=== PATIENT | male | born 1970 | race Caucasian/White ===

== ENCOUNTER 2016-03-21 09:03 | Emergency (ER) | payer MEDICARE ==
[~2016-03-21] VITALS: Ht 180.3 cm; Wt 63.5 kg
[~2016-03-21 09:03] MED LIST: ALPR1TAB2 PO; CLIN300C86 PO; CLON2TAB2 PO; GABA600T2 PO; HYDR-971 PO; OXYC30TA PO; OXYC30TA21 PO
--- NOTE | 2016-03-21 09:32 | PHYS DOC ---
Past Medical History Past Medical History: Anxiety, COPD, Other Additional Past Medical Histor: R lung mass, back problems, CHRONIC PAIN, Past Surgical History: Tonsillectomy, Other Additional Past Surgical Histo: facial reconstruction after injury, right partial pneumonectomy Additional Information: 1 PPD Alcohol Use: Rarely Drug Use: Marijuana Adult General Chief Complaint Chief Complaint: LOWER EXTREMITY SWELLING [facility] HPI Patient is a 45 year old male presents emergency room with a complaint of bilateral ankle and foot swelling that began overnight. He states this happened a couple of years ago in which she was seen at [facility] and was told that he had "blood poisoning". Patient denies any injuries to either foot or ankle. He denies any fevers or chills. Patient does have problems with chronic pain as well as anxiety and which she is reliant upon narcotics and benzodiazepines to be marginally functional. Patient denies any history of liver disease, renal disease, protein deficiencies or electrolyte abnormalities. He denies any history of cardiac disease, specifically congestive heart failure. Patient states that he took 30 mg of oxycodone this morning prior to coming into the emergency department. Review of Systems Review of Systems Constitutional: Denies fever or chills [] Eyes: Denies change in visual acuity, redness, or eye pain [] HENT: Denies nasal congestion or sore throat [] Respiratory: Denies cough or shortness of breath [] Cardiovascular: No additional information not addressed in HPI [] GI: Denies abdominal pain, nausea, vomiting, bloody stools or diarrhea [] : Denies dysuria or hematuria [] Musculoskeletal: Denies back pain or joint pain [] Integument: Denies rash or skin lesions [] Neurologic: Denies headache, focal weakness or sensory changes [] Endocrine: Denies polyuria or polydipsia [] Current Medications Current Medications Current Medications Medications (Trade) Dose Ordered Sig/Gerardo Start Time Stop Time Status Last Admin Dose Admin Lorazepam (Ativan) 1 mg 1X ONCE 03/21/16 10:45 03/21/16 10:46 DC 03/21/16 10:45 1 MG Allergies Allergies Allergies Coded Allergies Type Severity Reaction Last Updated Verified codeine Allergy Intermediate 06/25/13 Yes morphine Allergy Intermediate 06/25/13 Yes Physical Exam Physical Exam Constitutional: Well developed, well nourished, no acute distress, non-toxic appearance. Patient is somnolent in appearance. Poor eye contact as he prefers to look off to the left. He will look at me when I ask him a very direct, pointed question. HENT: Normocephalic, atraumatic, bilateral external ears normal, oropharynx moist, no oral exudates, nose normal. [] Eyes: PERRLA, EOMI, conjunctiva normal, no discharge. [] Neck: Normal range of motion, no tenderness, supple, no stridor. [] Cardiovascular:Heart rate regular rhythm, no murmur. PMI is not displaced. There is no JVD. Lungs & Thorax: Bilateral breath sounds clear to auscultation. Abdomen: Bowel sounds normal, soft, no tenderness, no masses, no pulsatile masses. [] Skin: Warm, dry, no erythema, no rash. [] Back: No tenderness, no CVA tenderness. [] Extremities: There is no pretibial edema. There is mild swelling about both ankles and midfoot. There is no pitting of the skin. Skin is warm and dry. There are no palpable venous cords to the medial aspect of either lower extremity. There is no erythema or warmth to the touch. Patient has strong bilateral dorsalis pedis and posterior tibialis pulses. Neurologic: Alert and oriented X 3, normal motor function, normal sensory function, no focal deficits noted. [] Psychologic: Affect normal, judgement normal, mood normal. [] Current Patient Data Vital Signs Vital Signs Date Time Temp Pulse Resp B/P Pulse Ox O2 Delivery O2 Flow Rate FiO2 03/21/16 10:13 68 117/70 93 Room Air 03/21/16 09:15 97.7 18 97.7 Lab Values Laboratory Tests Test 03/21/16 09:43 03/21/16 10:25 White Blood Count 8.1x10^3/uL (4.0-11.0) Red Blood Count 4.38x10^6/uL (4.30-5.70) Hemoglobin 13.4g/dL (13.0-17.5) Hematocrit 39.5% (39.0-53.0) Mean Corpuscular Volume 90fL (79-100) Mean Corpuscular Hemoglobin 31pg (25-35) Mean Corpuscular Hemoglobin Concent 34g/dL (31-37) Red Cell Distribution Width 13.0% (11.5-14.5) Platelet Count 251x10^3/uL (140-400) Neutrophils (%) (Auto) 71% (31-73) Lymphocytes (%) (Auto) 18% (24-48) L Monocytes (%) (Auto) 7% (0-9) Eosinophils (%) (Auto) 4% (0-3) H Basophils (%) (Auto) 1% (0-3) Neutrophils # (Auto) 5.7x10^3uL (1.8-7.7) Lymphocytes # (Auto) 1.5x10^3/uL (1.0-4.8) Monocytes # (Auto) 0.5x10^3/uL (0.0-1.1) Eosinophils # (Auto) 0.3x10^3/uL (0.0-0.7) Basophils # (Auto) 0.1x10^3/uL (0.0-0.2) Sodium Level 141mmol/L (136-145) Potassium Level 3.8mmol/L (3.5-5.1) Chloride Level 104mmol/L (98-107) Carbon Dioxide Level 30mmol/L (21-32) Anion Gap 7 (6-14) Blood Urea Nitrogen 11mg/dL (8-26) Creatinine 0.9mg/dL (0.7-1.3) Estimated GFR (Cockcroft-Gault) 92.1 BUN/Creatinine Ratio 12 (6-20) Glucose Level 91mg/dL (70-99) Calcium Level 8.6mg/dL (8.5-10.1) Total Bilirubin 0.4mg/dL (0.2-1.0) Aspartate Amino Transferase (AST) 23U/L (15-37) Alanine Aminotransferase (ALT) 31U/L (16-63) Alkaline Phosphatase 79U/L (46-116) YY-Nrb-R-Type Natriuretic Peptide 63pg/mL (0-124) Total Protein 6.3g/dL (6.4-8.2) L Albumin 3.4g/dL (3.4-5.0) Albumin/Globulin Ratio 1.2 (1.0-1.7) Urine Collection Type Void Urine Color Yellow Urine Clarity Clear Urine pH 6.0 Urine Specific [place] 1.020 Urine Protein Negativemg/dL (NEG-TRACE) Urine Glucose (UA) Negativemg/dL (NEG) Urine Ketones (Stick) Negativemg/dL (NEG) Urine Blood Negative (NEG) Urine Nitrite Negative (NEG) Urine Bilirubin Negative (NEG) Urine Urobilinogen Dipstick 0.2mg/dL (0.2 mg/dL) Urine Leukocyte Esterase Small (NEG) Urine RBC 1-2/HPF (0-2) Urine WBC 5-10/HPF (0-4) Urine Squamous Epithelial Cells Occ/LPF Urine Bacteria Few/HPF (0-FEW) Urine Mucus Marked/LPF Urine Opiates Screen Pos (NEG) Urine Methadone Screen Neg (NEG) Urine Barbiturates Neg (NEG) Urine Phencyclidine Screen Neg (NEG) Urine Amphetamine/Methamphetamine Neg (NEG) Urine Benzodiazepines Screen Pos (NEG) Urine Cocaine Screen Neg (NEG) Urine Cannabinoids Screen Neg (NEG) Urine Ethyl Alcohol Neg (NEG) Laboratory Tests 03/21/16 09:43 Laboratory Tests 03/21/16 09:43 EKG EKG [] Radiology/Procedures Radiology/Procedures Bilateral lower extremity venous Doppler showed no evidence of blood clots or vascular abnormalities. Course & Med Decision Making Course & Med Decision Making Pertinent Labs and Imaging studies reviewed. (See chart for details) [] Dragon Disclaimer Dragon Disclaimer This electronic medical record was generated, in whole or in part, using a voice recognition dictation system. Departure Departure Impression: Primary Impression: Peripheral edema Disposition: 01 HOME, SELF-CARE Condition: GOOD Referrals: NO PCP (PCP) Patient Instructions: Peripheral Edema Additional Instructions: 1. The ultrasound of your legs shows no blood clots. There is no evidence of congestive heart failure, kidney or liver abnormalities. There is no evidence of low protein causing her leg swelling. There is no evidence of congestive heart failure. 2. Review the discharge instructions provided for reasons to return to the emergency department. 3. You need to find a primary care doctor to address your medical concerns. A pamphlet is provided to you for assistance with this. DARCY BLANK Mar 21, 2016 09:32
[2016-03-21 09:58] LABS: BASO # 0.1 x10^3/uL (0.0-0.2); BASO % 1 % (0-3); EOS % 4 % (0-3); HEMATOCRIT 39.5 % (39.0-53.0); HEMOGLOBIN 13.4 g/dL (13.0-17.5); LYMPH # 1.5 x10^3/uL (1.0-4.8); LYMPH % 18 % (24-48); MEAN CORPUSCULAR HEMOGLOBIN 31 pg (25-35); MEAN CORPUSCULAR HGB CONC 34 g/dL (31-37); MEAN CORPUSCULAR VOLUME 90 fL (79-100); MONO % 7 % (0-9); NEUT % 71 % (31-73); PLATELET COUNT 251 x10^3/uL (140-400); RED BLOOD COUNT 4.38 x10^6/uL (4.30-5.70); WHITE BLOOD COUNT 8.1 x10^3/uL (4.0-11.0)
[2016-03-21 10:20] LABS: CALCIUM 8.6 mg/dL (8.5-10.1); CREATININE 0.9 mg/dL (0.7-1.3); GFR 92.1; POTASSIUM 3.8 mmol/L (3.5-5.1)
[2016-03-21 10:25] LABS: ALBUMIN 3.4 g/dL (3.4-5.0); ALBUMIN/GLOBULIN RATIO 1.2 (1.0-1.7); TOTAL BILIRUBIN 0.4 mg/dL (0.2-1.0); TOTAL PROTEIN 6.3 g/dL (6.4-8.2)
[2016-03-21] MEDS ORDERED: LORAZEPAM 2 MG/ML VIAL IV ONE (10:45)
[2016-03-21 10:47] LABS: BILIRUBIN,URINE NEGATIVE (NEG); GLUCOSE,URINE NEGATIVE (NEG); NITRITE,URINE NEGATIVE (NEG); PROTEIN,URINE NEGATIVE (NEG-TRACE); UROBILINOGEN,URINE 0.2 mg/dL (0.2 mg/dL)
[2016-03-21 10:49] LABS: BARBITURATES NEG (NEG); BENZODIAZEPINES POS (NEG); CANNABINOIDS NEG (NEG); COCAINE NEG (NEG); ETHANOL, URINE NEG (NEG); METHADONE NEG (NEG); OPIATES POS (NEG); PHENCYCLIDINE NEG (NEG)
--- NOTE | 2016-03-21 10:59 | RAD ---
Right leg venous Doppler study: Clinical indications: Right leg swelling and pain. Findings: Duplex sonography (including foster scale evaluation and color flow and waveform spectral analysis) of the proximal aspect of the greater saphenous vein and proximal aspect of the profunda femoral vein and the entire length of the common femoral and superficial femoral and popliteal veins and the tibioperoneal trunk and the proximal aspect of the posterior tibial veins of the right leg was performed. Normal compressibility, augmentation of color Doppler flow after calf compression, and respiratory variation of Doppler flow is seen. Thus, there are no sonographic findings of deep venous thrombosis within these veins. Impression: There are no sonographic findings of deep venous thrombosis within the veins discussed above of the right lower extremity. Left leg venous Doppler study: Clinical indications: Left leg swelling and pain. Findings: Duplex sonography (including foster scale evaluation and color flow and waveform spectral analysis) of the proximal aspect of the greater saphenous vein and the proximal aspect of the profunda femoral vein and the entire length of the common femoral and superficial femoral and popliteal veins and the tibioperoneal trunk and the proximal aspect of the posterior tibial veins of the left leg was performed. Normal compressibility, augmentation of color Doppler flow after calf compression, and respiratory variation of Doppler flow is seen. Thus, there are no sonographic findings of deep venous thrombosis within these veins. Impression: There are no sonographic findings of deep venous thrombosis within the veins discussed above of the left lower extremity.
[2016-03-21 11:05] LABS: BACTERIA,URINE FEW /HPF (0-FEW); SQUAMOUS EPITHELIAL CELL,UR OCC /LPF
[2016-03-21 11:13] VITALS: BP 115/65
== END 2016-03-21 11:56 | disposition home or self-care (01) ==
LOC: ER 09:03
DX: R60.0 Localized edema (principal); G89.29 Other chronic pain; F41.9 Anxiety disorder, unspecified; J44.9 Chronic obstructive pulmonary disease, unspecified; F12.10 Cannabis abuse, uncomplicated; F17.210 Nicotine dependence, cigarettes, uncomplicated; Z88.5 Allergy status to narcotic agent
CPT/HCPCS: 36415; 80053; 81001; 83880; 85027; 86141; 93970; 96374; 99285; G0481; J2060

== ENCOUNTER 2016-05-17 16:06 | Emergency (ER) | payer MEDICARE ==
[~2016-05-17] VITALS: Ht 180.3 cm; Wt 68.0 kg
--- NOTE | 2016-05-17 16:44 | PHYS DOC ---
Past Medical History Past Medical History: Anxiety, COPD, Other Additional Past Medical Histor: R lung mass, back problems, CHRONIC PAIN, Past Surgical History: Tonsillectomy, Other Additional Past Surgical Histo: facial reconstruction after injury, right partial pneumonectomy Alcohol Use: Rarely Drug Use: Marijuana Adult General Chief Complaint Chief Complaint: SEIZURE HPI HPI Patient is a 46 year old male who presents after seizure-like activity. Patient reports he had gone outside with his grandkids, then the next thing he remembers he was on the ground and there was an ambulance there. He says his niece told him he had a seizure (general shaking). He denies h/o seizure. patient was initially confused after episode, but has returned to baseline. He has c/o headache at this time as well as mild R shoulder discomfort. No numbness or weakness. He reports only rare alcohol usage; he does take xanax and clonazepam but his dose/usage of this has not changed. Review of Systems Review of Systems Constitutional: Denies fever or chills Eyes: Denies change in visual acuity or eye pain HENT: Denies nasal congestion or sore throat; cut to lower lip Respiratory: Denies cough or shortness of breath Cardiovascular: Denies chest pain GI: Denies abdominal pain, nausea, vomiting, bloody stools or diarrhea : Denies dysuria or hematuria Musculoskeletal: R shoulder soreness Integument: Denies rash or skin lesions Neurologic: General throbbing headache, seizure-like activity. Denies focal weakness or sensory changes Current Medications Current Medications Current Medications Medications (Trade) Dose Ordered Sig/Gerardo Start Time Stop Time Status Last Admin Dose Admin Acetaminophen (Tylenol) 1,000 mg 1X ONCE 05/17/16 16:45 05/17/16 16:46 DC 05/17/16 17:20 1,000 MG Alprazolam (Xanax) 1 mg 1X ONCE 05/17/16 20:15 05/17/16 20:16 DC 05/17/16 20:18 1 MG Lorazepam (Ativan) 1 mg 1X ONCE 05/17/16 16:45 05/17/16 16:46 DC 05/17/16 17:21 1 MG Naproxen (Naprosyn) 500 mg 1X ONCE 05/17/16 20:15 05/17/16 20:16 DC 05/17/16 20:17 500 MG Neomycin/ Polymyxin/ Bacitracin (Triple Antibiotic Ointment) 1 pkt 1X ONCE 05/17/16 16:45 05/17/16 16:46 DC 05/17/16 17:20 1 PKT Sodium Chloride (Iv Sodium Chloride 0.9% 1000ml Bag) 1,000 ml @ 1,000 mls/hr 1X ONCE 05/17/16 16:45 05/17/16 17:44 DC 05/17/16 17:18 1,000 MLS/HR Allergies Allergies Allergies Coded Allergies Type Severity Reaction Last Updated Verified codeine Allergy Intermediate 06/25/13 Yes morphine Allergy Intermediate 06/25/13 Yes Physical Exam Physical Exam Constitutional: Well developed, well nourished, no acute distress, non-toxic appearance HENT: Normocephalic, bilateral external ears normal; few mm lac to R parietal region; lower lip with 2mm lac Eyes: PERRL, EOMI, conjunctiva normal, no discharge Neck: Normal range of motion, no stridor. No midline TTP, no stepoff Cardiovascular: Heart rate normal, regular rhythm, no murmur Lungs & Thorax: Bilateral breath sounds clear to auscultation Abdomen: Bowel sounds normal, soft, non-distended, no TTP Skin: Warm, dry, no erythema, no rash Back: No midline tenderness, no stepoff Extremities: Abrasion to R posterior shoulder; mild anterior R shoulder TTP, no bony deformity noted, motor function and sensation to light touch intact, 2+ radial pulse Neurologic: Alert and oriented X 3, GCS 15, CN II-XII grossly intact, strength intact and symmetrical throughout, sensation to light touch intact throughout, no dystaxia noted Psychologic: Affect normal, judgement normal, mood normal Current Patient Data Vital Signs Vital Signs Date Time Temp Pulse Resp B/P Pulse Ox O2 Delivery O2 Flow Rate FiO2 05/17/16 20:25 68 16 134/67 96 Room Air 05/17/16 16:07 97.4 97.4 Lab Values Laboratory Tests Test 05/17/16 16:45 05/17/16 18:35 05/17/16 18:50 White Blood Count 14.2x10^3/uL (4.0-11.0) H Red Blood Count 5.25x10^6/uL (4.30-5.70) Hemoglobin 16.3g/dL (13.0-17.5) Hematocrit 49.3% (39.0-53.0) Mean Corpuscular Volume 94fL (79-100) Mean Corpuscular Hemoglobin 31pg (25-35) Mean Corpuscular Hemoglobin Concent 33g/dL (31-37) Red Cell Distribution Width 14.0% (11.5-14.5) Platelet Count 307x10^3/uL (140-400) Neutrophils (%) (Auto) 88% (31-73) H Lymphocytes (%) (Auto) 8% (24-48) L Monocytes (%) (Auto) 3% (0-9) Eosinophils (%) (Auto) 1% (0-3) Basophils (%) (Auto) 0% (0-3) Neutrophils # (Auto) 12.6x10^3uL (1.8-7.7) H Lymphocytes # (Auto) 1.2x10^3/uL (1.0-4.8) Monocytes # (Auto) 0.4x10^3/uL (0.0-1.1) Eosinophils # (Auto) 0.1x10^3/uL (0.0-0.7) Basophils # (Auto) 0.0x10^3/uL (0.0-0.2) Segmented Neutrophils % 87% (35-66) H Lymphocytes % 12% (24-48) L Monocytes % 1% (0-10) Toxic Granulation Slight Platelet Estimate Adequate (ADEQUATE) Sodium Level 142mmol/L (136-145) Potassium Level 4.8mmol/L (3.5-5.1) Chloride Level 107mmol/L (98-107) Carbon Dioxide Level 24mmol/L (21-32) Anion Gap 11 (6-14) Blood Urea Nitrogen 12mg/dL (8-26) Creatinine 1.5mg/dL (0.7-1.3) H Estimated GFR (Cockcroft-Gault) 50.8 BUN/Creatinine Ratio 8 (6-20) Glucose Level 164mg/dL (70-99) H Lactic Acid Level 4.2mmol/L (0.4-2.0) *H 2.1mmol/L (0.4-2.0) H Calcium Level 9.5mg/dL (8.5-10.1) Magnesium Level 2.6mg/dL (1.8-2.4) H Total Bilirubin 0.3mg/dL (0.2-1.0) Aspartate Amino Transferase (AST) 22U/L (15-37) Alanine Aminotransferase (ALT) 32U/L (16-63) Alkaline Phosphatase 89U/L (46-116) Total Protein 7.9g/dL (6.4-8.2) Albumin 4.1g/dL (3.4-5.0) Albumin/Globulin Ratio 1.1 (1.0-1.7) Urine Collection Type Void Urine Color Yellow Urine Clarity Turbid Urine pH 6.0 Urine Specific [place] 1.025 Urine Protein 100mg/dL (NEG-TRACE) Urine Glucose (UA) Negativemg/dL (NEG) Urine Ketones (Stick) Negativemg/dL (NEG) Urine Blood Small (NEG) Urine Nitrite Negative (NEG) Urine Bilirubin Negative (NEG) Urine Urobilinogen Dipstick 0.2mg/dL (0.2 mg/dL) Urine Leukocyte Esterase Negative (NEG) Urine RBC Occ/HPF (0-2) Urine WBC Occ/HPF (0-4) Urine Squamous Epithelial Cells Occ/LPF Urine Bacteria 0/HPF (0-FEW) Urine Hyaline Casts Moderate/HPF Urine Mucus Marked/LPF Urine Sperm Present/HPF Urine Opiates Screen Pos (NEG) Urine Methadone Screen Neg (NEG) Urine Barbiturates Neg (NEG) Urine Phencyclidine Screen Neg (NEG) Urine Amphetamine/Methamphetamine Neg (NEG) Urine Benzodiazepines Screen Pos (NEG) Urine Cocaine Screen Neg (NEG) Urine Cannabinoids Screen Pos (NEG) Urine Ethyl Alcohol Neg (NEG) Laboratory Tests 05/17/16 16:45 Laboratory Tests 05/17/16 16:45 EKG EKG EKG (my read): sinus rhythm, rate 73, normal axis, intervals wnl, no acute ST/T changes Radiology/Procedures Radiology/Procedures CT head: IMPRESSION No acute intracranial process. Please note that CT can be relatively insensitive to acute ischemic infarction for up to 24 hours after symptom onset. CXR (my read): No acute abnormality X-ray R shoulder (my read) - patient refused more than one view: No acute abnormality Course & Med Decision Making Course & Med Decision Making Pertinent Labs and Imaging studies reviewed. (See chart for details) Patient is 46-year-old male who presents status post apparent seizure. No prior history of same. Will check CT head, chest x-ray, right shoulder x-ray, labs to evaluate. IV fluid bolus, small dose of Ativan ordered. Patient says he is up-to -date on tetanus. No repair needed for abrasions or lacerations. Imaging results as above. Labs notable for leukocytosis, elevated lactic acid, positive urine drug screen. Repeat lactic acid ordered, decreasing appropriately. I spoke with Dr. Brenner; as this is first seizure ok to send patient home and will not start on anti-epileptic drug at this time. I did discuss seizure precautions with patient in depth. We will have him follow up with neurology as outpatient. Patient discharged home with strict return precautions. Dragon Disclaimer Dragon Disclaimer This electronic medical record was generated, in whole or in part, using a voice recognition dictation system. Departure Departure Impression: Primary Impression: Seizure Disposition: HOME, SELF-CARE Condition: IMPROVED Referrals: SARAH BRENNER MD Patient Instructions: Seizure, Adult Additional Instructions: Thank you for allowing us to provide care today in the Emergency Department. It appears that you have had a seizure. As we discussed, you will need to take precautions such as no driving until you have been seizure-free for 6 months. Schedule a follow-up appointment with your primary care doctor. Also schedule a follow-up appointment with a neurologist using the provided contact information. Return promptly to the Emergency Department if you develop any new or concerning symptoms. ASHIA LEAL MD May 17, 2016 16:44
[2016-05-17] MEDS ORDERED: LORAZEPAM 2 MG/ML VIAL IV ONE (16:45)
[2016-05-17] MEDS ORDERED: ACETAMINOPHEN 500 MG TABLET PO ONE (16:45)
[2016-05-17] MEDS ORDERED: NEOMY/BACITR/POLYMYXIN OINT PACKET. TP ONE (16:45)
[2016-05-17] MEDS ORDERED: IV NORMAL SALINE 1000ML BAG 1,000 ML IV ONE (16:45)
[2016-05-17 16:58] LABS: BASO % 0 % (0-3); EOS % 1 % (0-3); HEMATOCRIT 49.3 % (39.0-53.0); HEMOGLOBIN 16.3 g/dL (13.0-17.5); LYMPH # 1.2 x10^3/uL (1.0-4.8); LYMPH % 8 % (24-48); MEAN CORPUSCULAR HEMOGLOBIN 31 pg (25-35); MEAN CORPUSCULAR HGB CONC 33 g/dL (31-37); MEAN CORPUSCULAR VOLUME 94 fL (79-100); MONO % 3 % (0-9); NEUT % 88 % (31-73); PLATELET COUNT 307 x10^3/uL (140-400); RED BLOOD COUNT 5.25 x10^6/uL (4.30-5.70); WHITE BLOOD COUNT 14.2 x10^3/uL (4.0-11.0)
--- NOTE | 2016-05-17 17:12 | EKG ---
[facility] [address] [place] [address] Test Date: 2016-05-17 Test Time: 16:10:21 Pat Name: MITCH QUIROS Department: Room: Gender: M [employer] Operator: : [id number] Requested By: ASHIA LEAL Order Number: [id number] Reading MD: Nikole Skinner Measurements Intervals [place] Rate: 73 P: 69 AR: 122 QRS: 77 QRSD: 96 T: 73 QT: 392 QTc: 436 Interpretive Statements SINUS RHYTHM NORMAL ELECTROCARDIOGRAM RI6.01 Unconfirmed report Compared to ECG 05/12/2015 13:24:02 No significant changes Electronically Signed On 05-18-2016 20:23:45 CDT by Nikole Skinner
[2016-05-17 17:25] LABS: CALCIUM 9.5 mg/dL (8.5-10.1); CREATININE 1.5 mg/dL (0.7-1.3); GFR 50.8; PLT ESTIMATE ADEQUATE (ADEQUATE); POTASSIUM 4.8 mmol/L (3.5-5.1); TOXIC GRANULATION SLIGHT
--- NOTE | 2016-05-17 17:30 | RAD ---
PROCEDURE CT head without intravenous contrast. HISTORY Seizure, hematoma. TECHNIQUE Axial images are obtained of the head from the skull base through the vertex without IV contrast Exposure: One or more of the following individualized dose reduction techniques were utilized for this examination: 1. Automated exposure control. 2. Adjustment of the mA and/or kV according to patient size. 3. Use of iterative reconstruction technique. COMPARISON CT head 8 II 1,006. FINDINGS The ventricles are appropriate in size, shape, and location for the patient's age.No obvious intracranial mass, mass-effect, midline shift, hemorrhage or obvious acute infarction is identified.Basilar cisterns are patent. Bone windows demonstrate no acute calvarial abnormality.The visualized paranasal sinuses appear clear. IMPRESSION No acute intracranial process. Please note that CT can be relatively insensitive to acute ischemic infarction for up to 24 hours after symptom onset. Electronically signed by: Adair Arreola MD (May 17, 2016 17:28:34)
[2016-05-17 17:31] LABS: ALBUMIN 4.1 g/dL (3.4-5.0); ALBUMIN/GLOBULIN RATIO 1.1 (1.0-1.7); MAGNESIUM 2.6 mg/dL (1.8-2.4); TOTAL BILIRUBIN 0.3 mg/dL (0.2-1.0); TOTAL PROTEIN 7.9 g/dL (6.4-8.2)
[2016-05-17 18:51] LABS: BILIRUBIN,URINE NEGATIVE (NEG); GLUCOSE,URINE NEGATIVE (NEG); NITRITE,URINE NEGATIVE (NEG); PROTEIN,URINE 100 mg/dL (NEG-TRACE); UROBILINOGEN,URINE 0.2 mg/dL (0.2 mg/dL)
[2016-05-17 18:58] LABS: BARBITURATES NEG (NEG); BENZODIAZEPINES POS (NEG); CANNABINOIDS POS (NEG); COCAINE NEG (NEG); METHADONE NEG (NEG); OPIATES POS (NEG); PHENCYCLIDINE NEG (NEG)
[2016-05-17 18:59] LABS: ETHANOL, URINE NEG (NEG)
[2016-05-17 19:10] LABS: BACTERIA,URINE 0 /HPF (0-FEW); RBC,URINE OCC /HPF (0-2); SPERM,URINE PRESENT /HPF; SQUAMOUS EPITHELIAL CELL,UR OCC /LPF; WBC,URINE OCC /HPF (0-4)
[2016-05-17] MEDS ORDERED: ALPRAZOLAM 0.5 MG TABLET PO ONE (20:15)
[2016-05-17] MEDS ORDERED: NAPROXEN 500 MG TABLET PO ONE (20:15)
[2016-05-17 20:25] VITALS: BP 134/67
--- NOTE | 2016-05-18 08:56 | RAD ---
Indication: Right shoulder pain after fall. Technique: AP view of the right shoulder are submitted for review. Patient declined additional imaging. Findings: No fracture or malalignment on this single view is apparent. Impression: Negative for fracture on this single view.
--- NOTE | 2016-05-18 08:57 | RAD ---
Indication: Seizure, fall. Technique: Upright portable chest radiograph was obtained and compared to a study from May 12, 2015. Findings: The lungs are clear. There is no pneumothorax or pleural fluid. The heart is not enlarged. Right rib resection is redemonstrated. Impression: No acute thoracic findings.
== END 2016-05-17 20:30 | disposition home or self-care (01) ==
LOC: ER 16:06
DX: R56.9 Unspecified convulsions (principal); S01.01XA Laceration without foreign body of scalp, initial encounter; S01.511A Laceration without foreign body of lip, initial encounter; S40.211A Abrasion of right shoulder, initial encounter; J44.9 Chronic obstructive pulmonary disease, unspecified; G89.29 Other chronic pain; F41.9 Anxiety disorder, unspecified; D72.829 Elevated white blood cell count, unspecified; F12.10 Cannabis abuse, uncomplicated; Z88.5 Allergy status to narcotic agent; X58.XXXA Exposure to other specified factors, initial encounter; Y92.89 Other specified places as the place of occurrence of the external cause; Y93.89 Activity, other specified; Y99.8 Other external cause status
CPT/HCPCS: 36415; 70450; 71010; 73020; 80053; 80305; 81001; 83605; 83735; 85007; 85027; 93005; 96361; 96374; 99285; J2060; J7030; G0481

== ENCOUNTER 2019-08-10 15:04 | Emergency (ER) | payer MEDICARE ==
[~2019-08-10] VITALS: Ht 182.9 cm; Wt 65.9 kg
[~2019-08-10 15:04] MED LIST changes: +CLIN300C8 PO; -CLIN300C86 PO; -CLON2TAB2 PO; +CLON2TAB9 PO; -GABA600T2 PO; +GABA600T7 PO; +HYDR-3164 PO; -HYDR-971 PO; -OXYC30TA PO; +OXYC30TA3 PO
[2019-08-10 15:17] VITALS: BP 123/74
[2019-08-10] MEDS ORDERED: SULF1TAB24 PO (16:13)
[2019-08-10] MEDS ORDERED: CEPH-264 PO (16:13)
--- NOTE | 2019-08-10 16:13 | PHYS DOC ---
Past Medical History Past Medical History: Anxiety, COPD, Other Additional Past Medical Histor: R lung mass, back problems, CHRONIC PAIN, Past Surgical History: Tonsillectomy, Other Additional Past Surgical Histo: facial reconstruction after injury, right partial pneumonectomy Smoking Status: Current Every Day Smoker Alcohol Use: Rarely Drug Use: Marijuana General Adult EDM: Chief Complaint: ABSCESS HPI: HPI: Patient is a 49 year old male who presents to the emergency department with complaints of a red, tender area to his right buttock for the last 3 days. Patient states it started out as what he thought was a pimple and has progressed to its current condition. Patient denies any bleeding or drainage from the site. He denies any fever, itching, fever, numbness, tingling, body aches, or fatigue. He currently rates the pain a 10 out of 10 on the pain scale, he denies any alleviating factors. He states that the pain increases when pressure is applied or he sits. Patient states he is tried taking warm showers and Epson salt baths with little reduction in symptoms. Review of Systems: Review of Systems: Constitutional: Denies fever or chills. [] Eyes: Denies change in visual acuity. [] HENT: Denies nasal congestion or sore throat. [] Respiratory: Denies cough or shortness of breath. [] Cardiovascular: Denies chest pain or edema. [] GI: Denies abdominal pain, nausea, vomiting, or diarrhea. [] Musculoskeletal: Denies back pain or joint pain. [] Integument: see HPI Neurologic: Denies headache, focal weakness or sensory changes. [] Lymphatic: Denies swollen glands. [] Psychiatric: Denies depression or anxiety. [] Heart Score: Risk Factors: Risk Factors: DM, Current or recent (<one month) smoker, HTN, HLP, family history of CAD, obesity. Risk Scores: Score 0 - 3: 2.5% MACE over next 6 weeks - Discharge Home Score 4 - 6: 20.3% MACE over next 6 weeks - Admit for Clinical Observation Score 7 - 10: 72.7% MACE over next 6 weeks - Early Invasive Strategies Allergies: Allergies: Allergies Coded Allergies Type Severity Reaction Last Updated Verified codeine Allergy Intermediate 06/25/13 Yes morphine Allergy Intermediate 06/25/13 Yes Physical Exam: PE: Constitutional: Well developed, well nourished, no acute distress, non-toxic appearance. [] HENT: Normocephalic, atraumatic, bilateral external ears normal, nose normal. [] Eyes: PERRLA, EOMI, conjunctiva normal, no discharge. [] Neck: Normal range of motion, no stridor. [] Cardiovascular:Heart rate regular rhythm Lungs & Thorax: Respirations even and unlabored, no retractions, no respiratory distress Skin: Warm, dry, 7 cm diameter area of erythema and warmth that is indurated with 0.5 cm central punctum without drainage consistent with cellulitis noted to right buttock Back: No tenderness, no CVA tenderness. [] Extremities: No cyanosis, ROM intact, no edema. [] Neurologic: Alert and oriented X 3, no focal deficits noted. [] Psychologic: Affect normal, judgement normal, mood normal. [] Current Patient Data: Vital Signs: Vital Signs Date Time Temp Pulse Resp B/P (MAP) Pulse Ox O2 Delivery O2 Flow Rate FiO2 08/10/19 15:17 98.0 114 20 123/74 (90) 98 Room Air 98.0 EKG: EKG: [] Radiology/Procedures: Radiology/Procedures: [] Course & Med Decision Making: Course & Med Decision Making Pertinent Labs and Imaging studies reviewed. (See chart for details) [] Dragon Disclaimer: Richa Disclaimer: This electronic medical record was generated, in whole or in part, using a voice recognition dictation system. Departure Departure Impression: Primary Impression: Cellulitis of right buttock Disposition: HOME, SELF-CARE Condition: STABLE Referrals: NO PCP (PCP) Patient Instructions: Cellulitis, [id number] Additional Instructions: Fill the prescription(s) and use as directed. You may take tylenol or ibuprofen as needed for pain. Apply warm, moist packs to the area to help decrease discomfort. Follow up with your primary care doctor or return to the ER in 48 hours to have wound rechecked. Return to the ER sooner if your symptoms worsen or you develop a fever. Scripts Cephalexin (KEFLEX) 500 Mg Capsule 500 MG PO QID for 10 Days, #40 CAP 0 Refills Prov: ANTONIO FLORES APRN 08/10/19 Sulfamethoxazole/Trimethoprim (BACTRIM DS TABLET) 1 Each Tablet 1 TAB PO BID for 10 Days, #20 TAB 0 Refills Prov: ANTONIO FLORES [employer] 08/10/19 Justicifation of Admission Dx: Justifications for Admission: Justification of Admission Dx: ANTONIO Vann [employer] Aug 10, 2019 16:13
== END 2019-08-10 16:24 | disposition home or self-care (01) ==
LOC: ER 15:04
DX: L03.317 Cellulitis of buttock (principal); J44.9 Chronic obstructive pulmonary disease, unspecified; F17.200 Nicotine dependence, unspecified, uncomplicated; G89.29 Other chronic pain; Z88.5 Allergy status to narcotic agent
CPT/HCPCS: 99283